=== PATIENT | female | born 1980 | race Caucasian/White ===

== ENCOUNTER 2016-05-29 15:21 | Emergency (ER) | payer OTHER, SELFPAY ==
[2016-05-29 16:26] LABS: MEAN CORPUSCULAR HEMOGLOBIN 30.9 pg (27.0-33.0); MEAN CORPUSCULAR HGB CONC 33.7 g/dl (32.0-36.5); MEAN CORPUSCULAR VOLUME 91.8 fl (80.0-96.0); WHITE BLOOD COUNT 12.7 K/mm3 (4.0-10.0)
[2016-05-29 16:31] LABS: AMPHETAMINES LEVEL URINE NEGATIVE (NEGATIVE); BENZODIAZEPINES URINE NEGATIVE (NEGATIVE); COCAINE METABOLITE URINE NEGATIVE (NEGATIVE); METHADONE URINE NEGATIVE (NEGATIVE); OPIATES URINE NEGATIVE (NEGATIVE)
[2016-05-29 16:32] LABS: CONTROL LINE INT CTR LINE PRESENT; TRICYCLIC ANTIDEPRESS URINE NEGATIVE (NEGATIVE)
[2016-05-29 16:35] LABS: CONTROL LINE HCG INT CTR LINE PRESENT
[2016-05-29 16:52] LABS: ALBUMIN 3.7 GM/DL (3.2-5.2); ALBUMIN/GLOBULIN RATIO 1.23 (1.00-1.93); ALKALINE PHOSPHATASE 86 U/L (45-117); ALT/SGPT 18 U/L (12-78); ANION GAP 7 MEQ/L (8-16); AST/SGOT 9 U/L (15-37); BILIRUBIN,DIRECT < 0.1 MG/DL (0.0-0.2); BILIRUBIN,TOTAL 0.3 MG/DL (0.2-1.0); BLOOD UREA NITROGEN 6 MG/DL (7-18); CALCIUM LEVEL 8.3 MG/DL (8.5-10.1); CARBON DIOXIDE LEVEL 28 MEQ/L (21-32); CHLORIDE LEVEL 109 MEQ/L (98-107); GLOMERULAR FILTRATION RATE > 60.0 (>60); GLUCOSE, FASTING 100 MG/DL (70-105); POTASSIUM SERUM 4.1 MEQ/L (3.5-5.1); SODIUM LEVEL 144 MEQ/L (136-145); TOTAL PROTEIN 6.7 GM/DL (6.4-8.2)
--- NOTE | 2016-05-29 20:46 | EDDOCDS ---
Physician Documentation [facility] Name: Marycruz Baker Age: 36 yrs Sex: Female : 1980 Arrival Date: 05/29/2016 Time: 15:[address] [facility] Private MD: Disposition: 05/29 20:37 Critical Care: Critical care not applicable. pc Disposition: 05/29/16 20:38 Discharged to Home/Self Care. Impression: Bipolar disorder. - Condition is Stable. - Discharge Instructions: Bipolar Disorder. - Medication Reconciliation, Local Pharmacy Hours form. - Follow up: Referral list, As provided by PFS; When: Call to arrange an appointment; Reason: To establish care. - Problem is chronic. - Symptoms are unchanged. HPI: 15:56 This 36 yrs old Female presents to ER via Police Car with complaints of Psych pc Problem. 15:56 The history is obtained from the patient, a public safety police. She was brought in on a pc legal picker packer order after her mother complained of her being manic, with a history of Bipolar and noncompliance. She was brought in by [employer], and has been calm and cooperative. She states she doesn't get along with her mother and they were arguing. She denies making any SI or HI threats and denies SI or HI. She does admit to noncompliance but has been for a long time. She is calm and does not appear manic. Her speech is not pressured and she is able to stay on point. The patient has experienced similar episodes in the past, multiple times. The patient has not recently seen a physician. Historical: - Allergies: no known allergies; - Home Meds: 1. none - PMHx: Asthma; Anxiety; Bipolar disorder; - PSHx: Appendectomy; - The history from nurses notes was reviewed: but there are no nursing notes, or only partial notes available at the time of my charting. - Social history: Smoking status: Patient uses tobacco products, heavy tobacco smoker. No barriers to communication noted, Speaks appropriately for age. - : The pt / caregiver states he / she is not on anticoagulants. Home medication list is obtained from the patient. - Hospitalizations: : No recent hospitalization is reported. - Exposure Risk Screening:: None identified. - Immunization history:: All immunizations up-to-date. - Family history: Not pertinent. - Social history:: the patient smokes cigarettes the patient drinks alcohol. 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 The psychiatric and neurological components pc are also addressed in the HPI. Exam: 15:56 General Appearance: alert, no acute distress. pc 15:56 ENT: ear, nose and throat normal, pharynx normal. 15:56 Eyes: pupils equal, round and reactive to light, extraocular motions intact. 15:56 Neck: The exam reveals no acute abnormalities. ROM is normal and painless. No nuchal rigidity is noted.. 15:56 Respiratory: breathing is even and unlabored, breath sounds are normal. 15:56 Cardiovascular: regular pulse rate, regular heart rhythm, normal heart sounds, equal and full pulses bilaterally. 15:56 Abdomen: soft, non-tender, no organomegaly, normal bowel sounds, no masses appreciated, no hernias palpated with/without gravity or Valsalva 15:56 Skin: skin color is normal, warm, dry. 15:56 Extremities: The extremities have a grossly normal appearance, are non-tender, without acute ROM abnormalities. 15:56 Neuro: alert, oriented to person, place and time, cranial nerves normal as tested, no motor deficits, no sensory deficits. 15:56 Psych: mood is normal, affect is appropriate. Vital Signs: 15:39 Weight 61.23 kg / 134.99 lbs (R); Height 5 ft. 4 in. (162.56 cm) (R); Pain 0/10; ml6 15:39 BP 133 / 87; Pulse 91; Resp 18; Temp 97.6(O); Pulse Ox 98% on R/A; Pain 0/10; ml6 20:41 BP 109 / 69; Pulse 58; Resp 17; Temp 97.8; Pulse Ox 98% ; Pain 0/10; slm 15:39 Body Mass Index 23.17 (61.23 kg, 162.56 cm) ml6 MDM: 15:32 Consult PFS/PSA/Supervisor Word Processing: Patient's case requires discussion with on-call pc Psychiatrist ordered. 15:32 PSA/PFS to call Nursing Electronics Worker, to enter patient data on [place] Safe [place] if patient pc involuntarily admitted or transferred for SI or HI ordered. 15:32 Confirm accurate psychiatric medication list and times of last dosage ordered. pc 15:32 Detain Pt Until Medically/PFS Cleared ordered. pc 15:33 Acetaminophen Level Ordered. EDMS 15:33 Basic Metabolic Profile Ordered. EDMS 15:33 Complete Blood Count Ordered. EDMS 15:33 Drug Eval Toxicology ED Only Ordered. EDMS 15:33 Ethyl Alcohol (ethanol) Ordered. EDMS 15:33 HCG,Serum Qualitative Ordered. EDMS 15:33 Liver Profile Ordered. EDMS 15:33 Salicylate Level Ordered. EDMS 15:33 Thyroid Stimulating Hormone Ordered. EDMS 15:45 REGULAR DIET PLASTIC PERSAUD+DIET ordered. EDMS 15:52 Financial registration complete. gjb 15:52 Undo -Financial registration. gjb 15:56 Differential diagnosis: bipolar disorder with noncompliance; situational disturbance. pc Plan: labs, PFS eval. 16:40 Complete Blood Count Reviewed. pc 16:40 Drug Eval Toxicology ED Only Reviewed. pc 16:40 HCG,Serum Qualitative Reviewed. pc 16:57 Acetaminophen Level Reviewed. pc 16:57 Basic Metabolic Profile Reviewed. pc 16:57 Liver Profile Reviewed. pc 16:57 Salicylate Level Reviewed. pc 16:57 Ethyl Alcohol (ethanol) Reviewed. pc 16:57 HCG,Serum Qualitative Reviewed. pc 16:57 Thyroid Stimulating Hormone Reviewed. pc 18:47 Financial registration complete. gjb 20:11 [facility] [place] Payment Agreement was scanned into [employer]. and attached to record. gjb 20:37 The patient has been medically cleared for psychiatric evaluation, admission and/or pc transfer. [place] Safe [place] reporting: Reporting to the [place] Safe [place] was not completed because the patient did not display any suicidal or homicidal ideation and was not considered a risk to self or others. Data reviewed: old medical records, vital signs, nurses notes, lab test results. Test interpretation: LAB - all labs as ordered have been reviewed, interpreted and considered in the overall management of the clinical presentation;. The patient has been re-examined and re-evaluated. The clinical presentation did not require any ED treatment or interventions. Physician consultation: Dr. Ortiz Wakefield and will see patient in ED. Disposition: The historical points, examination findings, and any diagnostic results supporting the provided diagnosis, were discussed with the patient or legal guardian. The need for outpatient follow up with the provider listed on their discharge instructions was discussed. They were encouraged to return to [facility], or the nearest ED, if symptoms worsen/persist, or for any other questions/concerns. Signatures: Dispatcher [employer] Van Peralta MD MD pc Lowe, Matthew, RN RN ml6 Zaira Molina LPN LPN slm Beck, Gabriela gjb The chart was reviewed and I authenticate all verbal orders and agree with the evaluation and treatment provided.Attachments: 20:11 [facility] Payment Agreement rubens MTDD
--- NOTE | 2016-05-29 20:46 | EDDOCDS ---
Nurse's Notes [facility] Name: Marycruz Baker Age: 36 yrs Sex: Female : 1980 Arrival Date: 05/29/2016 Time: 15:[address] MD: Diagnosis: Bipolar disorder Presentation: 05/29 15:22 Presenting complaint: Patient states: states that she has been here visiting her ml6 mother, states that she has been arguing with her mother, states that she has been having anger issues and that her mother was trying to get her to take some supplement to help, patient denies SI or HI. Mental Health Triage Level: Level 2: 94.1. Adult Sepsis Screening: The patient does not have new or worsening altered mentation. Patient's respiratory rate is less than 22. Systolic blood pressure is greater than 100. Patient has a qSOFA score of 0- Negative Sepsis Screen. Mental Health Triage Level: Level 2:. Suicide/Homicide risk assessment- the patient denies having any suicidal and/or homicidal ideations and does not present with any other emotional, behavioral or mental health complaints. Status: Patient is not a loan service officer or dependent. Transition of care: patient was not received from another setting of care. 15:22 Acuity: FLORY Level 3 ml6 15:22 Method Of Arrival: Police Car ml6 Triage Assessment: 15:41 General: Appears in no apparent distress, Behavior is appropriate for age, cooperative. ml6 Pain: Denies pain. HIV screening NA for this visit Offered previously. The patient is triaged at the bedside. See Assessment in Nurses Notes section of ED record. Neurological: Level of Consciousness is awake, alert, Oriented to person, place, time. Cardiovascular: Capillary refill < 3 seconds is brisk in bilateral fingers toes Heart tones S1 S2 Edema is absent. Pulses are all present. Respiratory: No deficits noted. GI: No deficits noted. Abdomen is flat, non- distended Bowel sounds present X 4 quads. 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 none - PMHx: Asthma; Anxiety; Bipolar disorder; - PSHx: Appendectomy; - The history from nurses notes was reviewed: but there are no nursing notes, or only partial notes available at the time of my charting. - Social history: Smoking status: Patient uses tobacco products, heavy tobacco smoker. No barriers to communication noted, Speaks appropriately for age. - : The pt / caregiver states he / she is not on anticoagulants. Home medication list is obtained from the patient. - Hospitalizations: : No recent hospitalization is reported. - Exposure Risk Screening:: None identified. - Immunization history:: All immunizations up-to-date. - Family history: Not pertinent. - Social history:: the patient smokes cigarettes the patient drinks alcohol. Screenin:04 Screening information is obtained from the patient. Fall risk: No risks identified. ml6 Assistance ADL's: requires no assistance with activities of daily living. Abuse/DV Screen: The patient / caregiver reports he/she is: not in a situation that causes fear, pain or injury. Nutritional screening: No deficits noted. Advance Directives: Currently, there is no health care proxy. home support is adequate. Assessment: 15:22 General: see triage assessment. ml6 16:30 General: Appears in no apparent distress, comfortable, Behavior is appropriate for age, ml6 cooperative. Pain: Denies pain. Neurological: No deficits noted. Level of Consciousness is awake, alert, Oriented to person, place, time, Quiller Runner are equal bilaterally. Cardiovascular: No deficits noted. Capillary refill < 3 seconds is brisk in bilateral fingers toes Heart tones S1 S2 present Edema is absent. Pulses are all present. Rhythm is regular. 17:30 General: Appears in no apparent distress, comfortable, Behavior is appropriate for age, ml6 cooperative. Pain: Denies pain. Neurological: No deficits noted. Level of Consciousness is awake, alert, Oriented to person, place, time. Cardiovascular: No deficits noted. Capillary refill < 3 seconds is brisk in bilateral fingers toes Heart tones S1 S2 present Edema is absent. Pulses are all present. Rhythm is regular. Respiratory: No deficits noted. Airway is patent Respiratory effort is even, unlabored, Respiratory pattern is regular, symmetrical, Breath sounds are clear bilaterally. GI: No deficits noted. 19:52 General: Appears in no apparent distress, comfortable, Behavior is cooperative. slm General: pt sitting on stretcher family in room security observing . Respiratory: Airway is patent Respiratory effort is even, unlabored. 20:41 Reassessment: Patient appears in no apparent distress at this time. General: Appears slm comfortable, Behavior is cooperative, pleasant. Respiratory: Airway is patent Respiratory effort is even, unlabored. Derm: Skin is pink, warm & dry. Mental Health Eval: 17:31 Mental health consult is initiated at 16:00. ac 17:35 Status: The patient is not a loan service officer or dependent. [facility]: The patient is not an established patient of [facility] Behavioral Health. Referral Information: Evaluation referral is generated by a police agency: [facility] officer Adonay on . The patient was referred for evaluation because Pt's mother contacted this check writer expressing concern that pt is manic, making suicidal threats. Mother states pt moved here from [place] a few days ago. Per mother, pt has been manic, getting very angry and acting in bizarre manner: is afraid of electronic objects, has turned heat off in the house several times.. Vital Signs: 15:39 Weight 61.23 kg (R); Height 5 ft. 4 in. (162.56 cm) (R); Pain 0/10; ml6 15:39 BP 133 / 87; Pulse 91; Resp 18; Temp 97.6(O); Pulse Ox 98% on R/A; Pain 0/10; ml6 20:41 BP 109 / 69; Pulse 58; Resp 17; Temp 97.8; Pulse Ox 98% ; Pain 0/10; slm 15:39 Body Mass Index 23.17 (61.23 kg, 162.56 cm) ml6 Vitals: 15:39 Log In time N/A- police car arrival. ml6 ED Course: 15:22 Patient visited by Janell Felipe. dm19 15:22 Patient moved to [facility] dm19 15:23 Patient moved to [facility] ml6 15:25 Margie Feng MD is Attending Physician. ml 15:26 Patient visited by Margie Feng MD. ml 15:32 Van Griffin MD is Attending Physician. pc 15:37 Triage Initiated ml6 15:50 Patient visited by Antoine Kaur. dpm 15:50 Pt greeted and oriented to ED. Patient advised of names of staff involved in care, dpm location of call armstrong, wait times and NPO status. Patient has correct armband on for positive identification. Placed in gown. Placed in psych safe attire. Bed in low position. Security observing. Property removed, inventory done, secured in belongings bag- placed in locked locker. Placed in locker 3. vijay [rn] observed pt while changing. Psych Safety Check: Location: Psych Room. Visual Assessment: Cooperative. 16:00 Patient visited by Antoine Kaur. dpm 16:35 Patient visited by Antoine Kaur. dpm 16:56 Patient visited by Antoine Kaur. dpm 17:11 Patient visited by Antoine Kaur. dpm 17:27 Patient visited by Antoine Kaur. dpm 17:42 Patient visited by Antoine Kaur. dpm 18:05 The patient / caregiver is instructed regarding the plan of care and ED course. ml6 18:05 No IV's were initiated during this patient's visit. No procedures done that require ml6 assistance. 18:16 Patient visited by Quinn Dominguez RN. ml6 18:16 Patient visited by Antoine Kaur. dpm 18:31 Patient moved to OBSERVATION pc 18:33 Patient visited by Antoine Kaur. dpm 18:45 Patient visited by Antoine Kaur. dpm 18:59 Zaira Molina LPN is Primary Nurse. slm 19:00 Patient visited by Antoine Kaur. dpm 19:21 Patient visited by Antoine Kaur. dpm 19:44 Patient visited by Guillermo Patterson. tr 19:53 Patient visited by Zaira Molina LPN. slm 20:00 Patient visited by Guillermo Patterson. tr 20:11 [facility] Payment Agreement was scanned into [employer] and attached to record. gjb 20:14 Patient visited by Guillermo Patterson. tr 20:37 Patient moved to [facility] pc 20:38 Referral list, As provided by PFS is Referral Physician. pc 20:38 Patient visited by Guillermo Patterson. tr 20:45 Patient visited by Guillermo Patterson. tr Order Results: Lab Order: Acetaminophen Level; SPEC'M 05/29/16 16:09 Test: ACETAMINOPHEN LEVEL; Value: < 2.0; Range: 10.0-30.0; Abnormal: Below low normal; Units: UG/ML; Status: F Lab Order: Basic Metabolic Profile; SPEC'M 05/29/16 16:09 Test: GLUCOSE, FASTING; Value: 100; Range: 70-105; Units: MG/DL; Status: F Test: BLOOD UREA NITROGEN; Value: 6; Range: 7-18; Abnormal: Below low normal; Units: MG/DL; Status: F Test: CREATININE FOR GFR; Value: 0.80; Range: 0.55-1.02; Units: MG/DL; Status: F Test: SODIUM LEVEL; Range: 136-145; Units: MEQ/L; Status: I Test: POTASSIUM SERUM; Range: 3.5-5.1; Units: MEQ/L; Status: I Test: CHLORIDE LEVEL; Range: 98-107; Units: MEQ/L; Status: I Test: CARBON DIOXIDE LEVEL; Range: 21-32; Units: MEQ/L; Status: I Test: ANION GAP; Range: 8-16; Units: MEQ/L; Status: I Test: CALCIUM LEVEL; Range: 8.5-10.1; Units: MG/DL; Status: I Test: GLOMERULAR FILTRATION RATE; Value: > 60.0; Range: >60; Status: F Test: SODIUM LEVEL; Value: 144; Range: 136-145; Units: MEQ/L; Status: F Test: POTASSIUM SERUM; Value: 4.1; Range: 3.5-5.1; Units: MEQ/L; Status: F Test: CHLORIDE LEVEL; Value: 109; Range: 98-107; Abnormal: Above high normal; Units: MEQ/L; Status: F Test: CARBON DIOXIDE LEVEL; Value: 28; Range: 21-32; Units: MEQ/L; Status: F Test: ANION GAP; Value: 7; Range: 8-16; Abnormal: Below low normal; Units: MEQ/L; Status: F Test: CALCIUM LEVEL; Value: 8.3; Range: 8.5-10.1; Abnormal: Below low normal; Units: MG/DL; Status: F Test Note: ; Units are mL/min/1.73 m2 Chronic Kidney Disease Staging per NKF: Stage I & II GFR >=60 Normal to Mildly Decreased Stage III GFR 30-59 Moderately Decreased Stage IV GFR 15-29 Severely Decreased Stage V GFR <15 Very Little GFR Left ESRD GFR <15 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 Lab Order: Complete Blood Count; SPEC'M 05/29/16 16:09 Test: WHITE BLOOD COUNT; Value: 12.7; Range: 4.0-10.0; Abnormal: Above high normal; Units: K/mm3; Status: F Test: RED BLOOD COUNT; Value: 4.72; Range: 4.00-5.40; Units: M/mm3; Status: F Test: HEMOGLOBIN; Value: 14.6; Range: 12.0-16.0; Units: g/dl; Status: F Test: HEMATOCRIT; Value: 43.4; Range: 36.0-47.0; Units: %; Status: F Test: MEAN CORPUSCULAR VOLUME; Value: 91.8; Range: 80.0-96.0; Units: fl; Status: F Test: MEAN CORPUSCULAR HEMOGLOBIN; Value: 30.9; Range: 27.0-33.0; Units: pg; Status: F Test: MEAN CORPUSCULAR HGB CONC; Value: 33.7; Range: 32.0-36.5; Units: g/dl; Status: F Test: RED CELL DISTRIBUTION WIDTH; Value: 13.0; Range: 11.5-14.5; Units: %; Status: F Test: PLATELET COUNT, AUTOMATED; Value: 225; Range: 150-450; Units: k/mm3; Status: F Lab Order: Drug Eval Toxicology ED Only; SPEC'M 05/29/16 16:06 Test: AMPHETAMINES LEVEL URINE; Value: NEGATIVE; Range: NEGATIVE; Status: F Test: BARBITURATES URINE; Value: NEGATIVE; Range: NEGATIVE; Status: F Test: BENZODIAZEPINES URINE; Value: NEGATIVE; Range: NEGATIVE; Status: F Test: CANNABINOIDS URINE; Value: NEGATIVE; Range: NEGATIVE; Status: F Test: COCAINE METABOLITE URINE; Value: NEGATIVE; Range: NEGATIVE; Status: F Test: METHADONE URINE; Value: NEGATIVE; Range: NEGATIVE; Status: F Test: OPIATES URINE; Value: NEGATIVE; Range: NEGATIVE; Status: F Test: TRICYCLIC ANTIDEPRESS URINE; Value: NEGATIVE; Range: NEGATIVE; Status: F Test Note: ; ALL PRESUMPTIVE POSITIVE FINDINGS ARE UNCONFIRMED NORMAL VALUES THRESHOLD IN NG/ML AMPHETAMINES 1000 METHAMPHETAMINES 1000 BARBITURATES 300 BENZODIAZEPINES 300 CANNABINOIDS (THC) 50 COCAINE METABOLITE 300 METHADONE 300 OPIATES 300 PHENCYCLIDINE 25 TRICYCLIC ANTIDEPRESSANTS 1000 RESULTS ARE FOR MEDICAL PURPOSES ONLY. ALL URINE SPECIMENS WILL BE SAVED FOR 3 DAYS. IF CONFIRMATION OF A PRESUMPTIVE POSTIVE SCREEN RESULT IS DESIRED, CALL CHEMISTRY ([phone]) AND REQUEST URINE TO BE SENT TO REFERENCE LAB. FOR A LIST OF CLOSELY RELATED COMPOUNDS PLEASE CALL THE LAB. Lab Order: Ethyl Alcohol (ethanol); SPEC' 05/29/16 16:09 Test: ETHYL ALCOHOL (ETHANOL); Value: < 0.003; Range: 0.000-0.010; Units: %; Status: F Lab Order: HCG,Serum Qualitative; SPEC' 05/29/16 16:09 Test: HCG, SERUM QUALITATIVE; Value: NEGATIVE; Range: NEGATIVE; Status: F Lab Order: Liver Profile; [facility] 05/29/16 16:09 Test: AST/SGOT; Value: 9; Range: 15-37; Abnormal: Below low normal; Units: U/L; Status: F Test: ALT/SGPT; Value: 18; Range: 12-78; Units: U/L; Status: F Test: ALKALINE PHOSPHATASE; Value: 86; Range: 45-117; Units: U/L; Status: F Test: BILIRUBIN,TOTAL; Value: 0.3; Range: 0.2-1.0; Units: MG/DL; Status: F Test: BILIRUBIN,DIRECT; Value: < 0.1; Range: 0.0-0.2; Units: MG/DL; Status: F Test: TOTAL PROTEIN; Value: 6.7; Range: 6.4-8.2; Units: GM/DL; Status: F Test: ALBUMIN; Value: 3.7; Range: 3.2-5.2; Units: GM/DL; Status: F Test: ALBUMIN/GLOBULIN RATIO; Value: 1.23; Range: 1.00-1.93; Status: F Lab Order: Salicylate Level; [facility] 05/29/16 16:09 Test: SALICYLATE LEVEL; Value: 3.1; Range: 5.0-30.0; Abnormal: Below low normal; Units: MG/DL; Status: F Lab Order: Thyroid Stimulating Hormone; [facility] 05/29/16 16:09 Test: THYROID STIMULATING HORMONE; Value: 1.040; Range: 0.358-3.740; Units: uIU/ML; Status: F Outcome: 20:38 Discharge ordered by Provider. pc 20:42 Discharge Assessment: Patient awake, alert and oriented x 3. No cognitive and/or slm functional deficits noted. Patient verbalized understanding of disposition instructions. patient administered narcotics - no. The following High Risk Discharge criteria are identified: Yes, pt seen by and ROSINA . Discharged to home ambulatory, with parent. Condition: stable. Discharge instructions given to patient, Instructed on discharge instructions, follow up and referral plans. Demonstrated understanding of instructions, Pt was receptive of discharge instructions/ teaching. No special radiology studies were completed. 20:45 Patient left the ED. slm Signatures: Van Griffin MD MD pc Lundborg-Gray, Maja, MD MD ml Carter, Andy, PSA PSA ac Rasmussen, Tim tr Lowe, Matthew, RN RN ml6 Antoine Kaur dpm, Stephanie, LPN LPN slm Beck, Gabriela gjb McLear, Diane dm19 NITIN
--- NOTE | 2016-06-01 11:42 | EDDOCDS ---
Physician Documentation [facility] Name: Marycruz Baker Age: 36 yrs Sex: Female : 1980 Arrival Date: 05/29/2016 Time: 15:21 Bed [facility] Private MD: Disposition: 05/29 20:37 Critical Care: Critical care not applicable. pc Disposition: 05/29/16 20:38 Discharged to Home/Self Care. Impression: Bipolar disorder. - Condition is Stable. - Discharge Instructions: Bipolar Disorder. - Medication Reconciliation, Local Pharmacy Hours form. - Follow up: Referral list, As provided by PFS; When: Call to arrange an appointment; Reason: To establish care. - Problem is chronic. - Symptoms are unchanged. HPI: 15:56 This 36 yrs old Female presents to ER via Police Car with complaints of Psych pc Problem. 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 She was brought in by [employer], and has been calm and cooperative. She states she doesn't get along with her mother and they were arguing. She denies making any SI or HI threats and denies SI or HI. She does admit to noncompliance but has been for a long time. She is calm and does not appear manic. Her speech is not pressured and she is able to stay on point. The patient has experienced similar episodes in the past, multiple times. The patient has not recently seen a physician. Historical: - Allergies: no known allergies; - Home Meds: 1. none - PMHx: Asthma; Anxiety; Bipolar disorder; - PSHx: Appendectomy; - The history from nurses notes was reviewed: but there are no nursing notes, or only partial notes available at the time of my charting. - Social history: Smoking status: Patient uses tobacco products, heavy tobacco smoker. No barriers to communication noted, Speaks appropriately for age. - : The pt / caregiver states he / she is not on anticoagulants. Home medication list is obtained from the patient. - Hospitalizations: : No recent hospitalization is reported. - Exposure Risk Screening:: None identified. - Immunization history:: All immunizations up-to-date. - Family history: Not pertinent. - Social history:: the patient smokes cigarettes the patient drinks alcohol. ORDER RUNNER: 15:39 LMP 04/19/2016 ml6 ROS: 15:56 All systems are negative except as listed. The psychiatric and neurological components pc are also addressed in the HPI. Exam: 15:56 General Appearance: alert, no acute distress. pc 15:56 ENT: ear, nose and throat normal, pharynx normal. 15:56 Eyes: pupils equal, round and reactive to light, extraocular motions intact. 15:56 Neck: The exam reveals no acute abnormalities. ROM is normal and painless. No nuchal rigidity is noted.. 15:56 Respiratory: breathing is even and unlabored, breath sounds are normal. 15:56 Cardiovascular: regular pulse rate, regular heart rhythm, normal heart sounds, equal and full pulses bilaterally. 15:56 Abdomen: soft, non-tender, no organomegaly, normal bowel sounds, no masses appreciated, no hernias palpated with/without gravity or Valsalva 15:56 Skin: skin color is normal, warm, dry. 15:56 Extremities: The extremities have a grossly normal appearance, are non-tender, without acute ROM abnormalities. 15:56 Neuro: alert, oriented to person, place and time, cranial nerves normal as tested, no motor deficits, no sensory deficits. 15:56 Psych: mood is normal, affect is appropriate. Vital Signs: 15:39 Weight 61.23 kg / 134.99 lbs (R); Height 5 ft. 4 in. (162.56 cm) (R); Pain 0/10; ml6 15:39 BP 133 / 87; Pulse 91; Resp 18; Temp 97.6(O); Pulse Ox 98% on R/A; Pain 0/10; ml6 20:41 BP 109 / 69; Pulse 58; Resp 17; Temp 97.8; Pulse Ox 98% ; Pain 0/10; slm 15:39 Body Mass Index 23.17 (61.23 kg, 162.56 cm) ml6 MDM: 15:32 Consult PFS/PSA/Port Warden: Patient's case requires discussion with on-call pc Psychiatrist ordered. 15:32 PSA/PFS to call Nursing Dry Clipper Tender, to enter patient data on [place] Safe Act if patient pc involuntarily admitted or transferred for SI or HI ordered. 15:32 Confirm accurate psychiatric medication list and times of last dosage ordered. pc 15:32 Detain Pt Until Medically/PFS Cleared ordered. pc 15:33 Acetaminophen Level Ordered. EDMS 15:33 Basic Metabolic Profile Ordered. EDMS 15:33 Complete Blood Count Ordered. EDMS 15:33 Drug Eval Toxicology ED Only Ordered. EDMS 15:33 Ethyl Alcohol (ethanol) Ordered. EDMS 15:33 HCG,Serum Qualitative Ordered. EDMS 15:33 Liver Profile Ordered. EDMS 15:33 Salicylate Level Ordered. EDMS 15:33 Thyroid Stimulating Hormone Ordered. EDMS 15:45 REGULAR DIET PLASTIC PERSAUD+DIET ordered. EDMS 15:52 Financial registration complete. gjb 15:52 Undo -Financial registration. gjb 15:56 Differential diagnosis: bipolar disorder with noncompliance; situational disturbance. pc Plan: labs, PFS eval. 16:40 Complete Blood Count Reviewed. pc 16:40 Drug Eval Toxicology ED Only Reviewed. pc 16:40 HCG,Serum Qualitative Reviewed. pc 16:57 Acetaminophen Level Reviewed. pc 16:57 Basic Metabolic Profile Reviewed. pc 16:57 Liver Profile Reviewed. pc 16:57 Salicylate Level Reviewed. pc 16:57 Ethyl Alcohol (ethanol) Reviewed. pc 16:57 HCG,Serum Qualitative Reviewed. pc 16:57 Thyroid Stimulating Hormone Reviewed. pc 18:47 Financial registration complete. gjb 20:11 [facility] Payment Agreement was scanned into [employer] and attached to record. gjb 20:37 The patient has been medically cleared for psychiatric evaluation, admission and/or pc transfer. [place] Safe Act reporting: Reporting to the [place] Safe [place] was not completed because the patient did not display any suicidal or homicidal ideation and was not considered a risk to self or others. Data reviewed: old medical records, vital signs, nurses notes, lab test results. Test interpretation: LAB - all labs as ordered have been reviewed, interpreted and considered in the overall management of the clinical presentation;. The patient has been re-examined and re-evaluated. The clinical presentation did not require any ED treatment or interventions. Physician consultation: Dr. Ortiz Wakefield and will see patient in ED. Disposition: The historical points, examination findings, and any diagnostic results supporting the provided diagnosis, were discussed with the patient or legal guardian. The need for outpatient follow up with the provider listed on their discharge instructions was discussed. They were encouraged to return to [facility], or the nearest ED, if symptoms worsen/persist, or for any other questions/concerns. Signatures: Dispatcher [employer] Van Peralta MD MD pc Lowe, Matthew, RN RN ml6 Zaira Molina LPN LPN slm Beck, Gabriela gjb The chart was reviewed and I authenticate all verbal orders and agree with the evaluation and treatment provided.Attachments: 20:11 [facility] Payment Agreement rubens Chart Complete MTDD
--- NOTE | 2016-06-01 11:42 | EDDOCDS ---
Physician Documentation [facility] Name: Marycruz Baker Age: 36 yrs Sex: Female : 1980 Arrival Date: 05/29/2016 Time: 15:21 Bed [facility] Private MD: Disposition: 05/29 20:37 Critical Care: Critical care not applicable. pc Disposition: 05/29/16 20:38 Discharged to Home/Self Care. Impression: Bipolar disorder. - Condition is Stable. - Discharge Instructions: Bipolar Disorder. - Medication Reconciliation, Local Pharmacy Hours form. - Follow up: Referral list, As provided by PFS; When: Call to arrange an appointment; Reason: To establish care. - Problem is chronic. - Symptoms are unchanged. HPI: 15:56 This 36 yrs old Female presents to ER via Police Car with complaints of Psych pc Problem. 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 She was brought in by [employer], and has been calm and cooperative. She states she doesn't get along with her mother and they were arguing. She denies making any SI or HI threats and denies SI or HI. She does admit to noncompliance but has been for a long time. She is calm and does not appear manic. Her speech is not pressured and she is able to stay on point. The patient has experienced similar episodes in the past, multiple times. The patient has not recently seen a physician. Historical: - Allergies: no known allergies; - Home Meds: 1. none - PMHx: Asthma; Anxiety; Bipolar disorder; - PSHx: Appendectomy; - The history from nurses notes was reviewed: but there are no nursing notes, or only partial notes available at the time of my charting. - Social history: Smoking status: Patient uses tobacco products, heavy tobacco smoker. No barriers to communication noted, Speaks appropriately for age. - : The pt / caregiver states he / she is not on anticoagulants. Home medication list is obtained from the patient. - Hospitalizations: : No recent hospitalization is reported. - Exposure Risk Screening:: None identified. - Immunization history:: All immunizations up-to-date. - Family history: Not pertinent. - Social history:: the patient smokes cigarettes the patient drinks alcohol. 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 The psychiatric and neurological components pc are also addressed in the HPI. Exam: 15:56 General Appearance: alert, no acute distress. pc 15:56 ENT: ear, nose and throat normal, pharynx normal. 15:56 Eyes: pupils equal, round and reactive to light, extraocular motions intact. 15:56 Neck: The exam reveals no acute abnormalities. ROM is normal and painless. No nuchal rigidity is noted.. 15:56 Respiratory: breathing is even and unlabored, breath sounds are normal. 15:56 Cardiovascular: regular pulse rate, regular heart rhythm, normal heart sounds, equal and full pulses bilaterally. 15:56 Abdomen: soft, non-tender, no organomegaly, normal bowel sounds, no masses appreciated, no hernias palpated with/without gravity or Valsalva 15:56 Skin: skin color is normal, warm, dry. 15:56 Extremities: The extremities have a grossly normal appearance, are non-tender, without acute ROM abnormalities. 15:56 Neuro: alert, oriented to person, place and time, cranial nerves normal as tested, no motor deficits, no sensory deficits. 15:56 Psych: mood is normal, affect is appropriate. Vital Signs: 15:39 Weight 61.23 kg / 134.99 lbs (R); Height 5 ft. 4 in. (162.56 cm) (R); Pain 0/10; ml6 15:39 BP 133 / 87; Pulse 91; Resp 18; Temp 97.6(O); Pulse Ox 98% on R/A; Pain 0/10; ml6 20:41 BP 109 / 69; Pulse 58; Resp 17; Temp 97.8; Pulse Ox 98% ; Pain 0/10; slm 15:39 Body Mass Index 23.17 (61.23 kg, 162.56 cm) ml6 MDM: 15:32 Consult PFS/PSA/Chip Mucker: Patient's case requires discussion with on-call pc Psychiatrist ordered. 15:32 PSA/PFS to call Nursing Biological Sciences Instructor, to enter patient data [place] Safe [place] if patient pc involuntarily admitted or transferred for SI or HI ordered. 15:32 Confirm accurate psychiatric medication list and times of last dosage ordered. pc 15:32 Detain Pt Until Medically/PFS Cleared ordered. pc 15:33 Acetaminophen Level Ordered. EDMS 15:33 Basic Metabolic Profile Ordered. EDMS 15:33 Complete Blood Count Ordered. EDMS 15:33 Drug Eval Toxicology ED Only Ordered. EDMS 15:33 Ethyl Alcohol (ethanol) Ordered. EDMS 15:33 HCG,Serum Qualitative Ordered. EDMS 15:33 Liver Profile Ordered. EDMS 15:33 Salicylate Level Ordered. EDMS 15:33 Thyroid Stimulating Hormone Ordered. EDMS 15:45 REGULAR DIET PLASTIC PERSAUD+DIET ordered. EDMS 15:52 Financial registration complete. gjb 15:52 Undo -Financial registration. gjb 15:56 Differential diagnosis: bipolar disorder with noncompliance; situational disturbance. pc Plan: labs, PFS eval. 16:40 Complete Blood Count Reviewed. pc 16:40 Drug Eval Toxicology ED Only Reviewed. pc 16:40 HCG,Serum Qualitative Reviewed. pc 16:57 Acetaminophen Level Reviewed. pc 16:57 Basic Metabolic Profile Reviewed. pc 16:57 Liver Profile Reviewed. pc 16:57 Salicylate Level Reviewed. pc 16:57 Ethyl Alcohol (ethanol) Reviewed. pc 16:57 HCG,Serum Qualitative Reviewed. pc 16:57 Thyroid Stimulating Hormone Reviewed. pc 18:47 Financial registration complete. gjb 20:11 [facility] Payment Agreement was scanned into [employer] and attached to record. gjb 20:37 The patient has been medically cleared for psychiatric evaluation, admission and/or pc transfer. [place] Safe Act reporting: Reporting to the [place] Safe Act was not completed because the patient did not display any suicidal or homicidal ideation and was not considered a risk to self or others. Data reviewed: old medical records, vital signs, nurses notes, lab test results. Test interpretation: LAB - all labs as ordered have been reviewed, interpreted and considered in the overall management of the clinical presentation;. The patient has been re-examined and re-evaluated. The clinical presentation did not require any ED treatment or interventions. Physician consultation: Dr. Ortiz Wakefield and will see patient in ED. Disposition: The historical points, examination findings, and any diagnostic results supporting the provided diagnosis, were discussed with the patient or legal guardian. The need for outpatient follow up with the provider listed on their discharge instructions was discussed. They were encouraged to return to [facility], or the nearest ED, if symptoms worsen/persist, or for any other questions/concerns. Signatures: Dispatcher [employer] Van Peralta MD MD pc Lowe, Matthew, RN RN ml6 Zaira Molina LPN LPN slm Beck, Gabriela gjb The chart was reviewed and I authenticate all verbal orders and agree with the evaluation and treatment provided.Attachments: 20:11 [facility] Payment Agreement rubens Chart Complete MTDD
--- NOTE | 2016-06-01 11:42 | EDDOCDS ---
Nurse's Notes [facility] Name: Marycruz Baker Age: 36 yrs Sex: Female : 1980 Arrival Date: 05/29/2016 Time: 15:[address] MD: Diagnosis: Bipolar disorder Presentation: 05/29 15:22 Presenting complaint: Patient states: states that she has been here visiting her ml6 mother, states that she has been arguing with her mother, states that she has been having anger issues and that her mother was trying to get her to take some supplement to help, patient denies SI or HI. Mental Health Triage Level: Level 2: 94.1. Adult Sepsis Screening: The patient does not have new or worsening altered mentation. Patient's respiratory rate is less than 22. Systolic blood pressure is greater than 100. Patient has a qSOFA score of 0- Negative Sepsis Screen. Mental Health Triage Level: Level 2:. Suicide/Homicide risk assessment- the patient denies having any suicidal and/or homicidal ideations and does not present with any other emotional, behavioral or mental health complaints. Status: Patient is not a freight service inspector or dependent. Transition of care: patient was not received from another setting of care. 15:22 Acuity: FLORY Level 3 ml6 15:22 Method Of Arrival: Police Car ml6 Triage Assessment: 15:41 General: Appears in no apparent distress, Behavior is appropriate for age, cooperative. ml6 Pain: Denies pain. HIV screening NA for this visit Offered previously. The patient is triaged at the bedside. See Assessment in Nurses Notes section of ED record. Neurological: Level of Consciousness is awake, alert, Oriented to person, place, time. Cardiovascular: Capillary refill < 3 seconds is brisk in bilateral fingers toes Heart tones S1 S2 Edema is absent. Pulses are all present. Respiratory: No deficits noted. GI: No deficits noted. Abdomen is flat, non- distended Bowel sounds present X 4 quads. BEEF GRADER: 15:39 LMP 04/19/2016 ml6 Historical: - Allergies: no known allergies; - Home Meds: 1. none - PMHx: Asthma; Anxiety; Bipolar disorder; - PSHx: Appendectomy; - The history from nurses notes was reviewed: but there are no nursing notes, or only partial notes available at the time of my charting. - Social history: Smoking status: Patient uses tobacco products, heavy tobacco smoker. No barriers to communication noted, Speaks appropriately for age. - : The pt / caregiver states he / she is not on anticoagulants. Home medication list is obtained from the patient. - Hospitalizations: : No recent hospitalization is reported. - Exposure Risk Screening:: None identified. - Immunization history:: All immunizations up-to-date. - Family history: Not pertinent. - Social history:: the patient smokes cigarettes the patient drinks alcohol. Screenin:04 Screening information is obtained from the patient. Fall risk: No risks identified. ml6 Assistance ADL's: requires no assistance with activities of daily living. Abuse/DV Screen: The patient / caregiver reports he/she is: not in a situation that causes fear, pain or injury. Nutritional screening: No deficits noted. Advance Directives: Currently, there is no health care proxy. home support is adequate. Assessment: 15:22 General: see triage assessment. ml6 16:30 General: Appears in no apparent distress, comfortable, Behavior is appropriate for age, ml6 cooperative. Pain: Denies pain. Neurological: No deficits noted. Level of Consciousness is awake, alert, Oriented to person, place, time, Retort Kiln Burner are equal bilaterally. Cardiovascular: No deficits noted. Capillary refill < 3 seconds is brisk in bilateral fingers toes Heart tones S1 S2 present Edema is absent. Pulses are all present. Rhythm is regular. 17:30 General: Appears in no apparent distress, comfortable, Behavior is appropriate for age, ml6 cooperative. Pain: Denies pain. Neurological: No deficits noted. Level of Consciousness is awake, alert, Oriented to person, place, time. Cardiovascular: No deficits noted. Capillary refill < 3 seconds is brisk in bilateral fingers toes Heart tones S1 S2 present Edema is absent. Pulses are all present. Rhythm is regular. Respiratory: No deficits noted. Airway is patent Respiratory effort is even, unlabored, Respiratory pattern is regular, symmetrical, Breath sounds are clear bilaterally. GI: No deficits noted. 19:52 General: Appears in no apparent distress, comfortable, Behavior is cooperative. slm General: pt sitting on stretcher family in room security observing . Respiratory: Airway is patent Respiratory effort is even, unlabored. 20:41 Reassessment: Patient appears in no apparent distress at this time. General: Appears slm comfortable, Behavior is cooperative, pleasant. Respiratory: Airway is patent Respiratory effort is even, unlabored. Derm: Skin is pink, warm & dry. Mental Health Eval: 17:31 Mental health consult is initiated at 16:00. ac 17:35 Status: The patient is not a freight service inspector or dependent. [facility]: The patient is not an established patient of [facility]. Referral Information: Evaluation referral is generated by a police agency: [facility] officer [place] on . The patient was referred for evaluation because Pt's mother contacted this insurance underwriter sales expressing concern that pt is manic, making suicidal threats. Mother states pt moved here from [place] a few days ago. Per mother, pt has been manic, getting very angry and acting in bizarre manner: is afraid of electronic objects, has turned heat off in the house several times.. 20:44 Subjective: The patients chief complaint is My mother and I were arguing and the police ac brought me here. I was on hydroxizine but it only makes me sleepy. Delusions are denied. Patient's mood is elevated, Hallucinations are denied. Mental Health history: no relevant mental health problems or treatments. Mental Health Admissions: None. Current Outpatient Mental Health Services: None. Current living environment is The patient currently lives with his / her mother, and sister. Patient presents to Emergency Department with the following symptoms within the past 2 weeks: hypomania. Vital Signs: 15:39 Weight 61.23 kg (R); Height 5 ft. 4 in. (162.56 cm) (R); Pain 0/10; ml6 15:39 BP 133 / 87; Pulse 91; Resp 18; Temp 97.6(O); Pulse Ox 98% on R/A; Pain 0/10; ml6 20:41 BP 109 / 69; Pulse 58; Resp 17; Temp 97.8; Pulse Ox 98% ; Pain 0/10; slm 15:39 Body Mass Index 23.17 (61.23 kg, 162.56 cm) ml6 Vitals: 15:39 Log In time N/A- police car arrival. ml6 ED Course: 15:22 Patient visited by Janell Felipe. dm19 15:22 Patient moved to [facility] dm19 15:23 Patient moved to [facility] ml6 15:25 Margie Feng MD is Attending Physician. ml 15:26 Patient visited by Margie Feng MD. ml 15:32 Van Griffin MD is Attending Physician. pc 15:37 Triage Initiated ml6 15:50 Patient visited by Antoine Kaur. dpm 15:50 Pt greeted and oriented to ED. Patient advised of names of staff involved in care, dpm location of call armstrong, wait times and NPO status. Patient has correct armband on for positive identification. Placed in gown. Placed in psych safe attire. Bed in low position. Security observing. Property removed, inventory done, secured in belongings bag- placed in locked locker. Placed in locker 3. vijay [rn] observed pt while changing. Psych Safety Check: Location: Psych Room. Visual Assessment: Cooperative. 16:00 Patient visited by Antoine Kaur. dpm 16:35 Patient visited by Antoine Kaur. dpm 16:56 Patient visited by Antoine Kaur. dpm 17:11 Patient visited by Antoine Kaur. dpm 17:27 Patient visited by Antoine Kaur. dpm 17:42 Patient visited by Antoine Kaur. dpm 18:05 The patient / caregiver is instructed regarding the plan of care and ED course. ml6 18:05 No IV's were initiated during this patient's visit. No procedures done that require ml6 assistance. 18:16 Patient visited by Quinn Dominguez RN. ml6 18:16 Patient visited by Antoine Kaur. dpm 18:31 Patient moved to OBSERVATION pc 18:33 Patient visited by Antoine Kaur. dpm 18:45 Patient visited by Antoine Kaur. dpm 18:59 Zaira Molina LPN is Primary Nurse. slm 19:00 Patient visited by Antoine Kaur. dpm 19:21 Patient visited by Antoine Kaur. dpm 19:44 Patient visited by Guillermo Patterson. tr 19:53 Patient visited by Zaira Molina LPN. slm 20:00 Patient visited by Guillermo Pattreson. tr 20:11 [facility] Payment Agreement was scanned into [employer] and attached to record. gjb 20:14 Patient visited by Tim. Leonardo tr 20:37 Patient moved to [facility] pc 20:38 Referral list, As provided by [facility] is Referral Physician. pc 20:38 Patient visited by Tim. Leonardo tr 20:45 Patient visited by Guillermo Patterson. tr Order Results: Lab Order: Acetaminophen Level; SPEC'M 05/29/16 16:09 Test: ACETAMINOPHEN LEVEL; Value: < 2.0; Range: 10.0-30.0; Abnormal: Below low normal; Units: UG/ML; Status: F Lab Order: Basic Metabolic Profile; SPEC'M 05/29/16 16:09 Test: GLUCOSE, FASTING; Value: 100; Range: 70-105; Units: MG/DL; Status: F Test: BLOOD UREA NITROGEN; Value: 6; Range: 7-18; Abnormal: Below low normal; Units: MG/DL; Status: F Test: CREATININE FOR GFR; Value: 0.80; Range: 0.55-1.02; Units: MG/DL; Status: F Test: SODIUM LEVEL; Range: 136-145; Units: MEQ/L; Status: I Test: POTASSIUM SERUM; Range: 3.5-5.1; Units: MEQ/L; Status: I Test: CHLORIDE LEVEL; Range: 98-107; Units: MEQ/L; Status: I Test: CARBON DIOXIDE LEVEL; Range: 21-32; Units: MEQ/L; Status: I Test: ANION GAP; Range: 8-16; Units: MEQ/L; Status: I Test: CALCIUM LEVEL; Range: 8.5-10.1; Units: MG/DL; Status: I Test: GLOMERULAR FILTRATION RATE; Value: > 60.0; Range: >60; Status: F Test: SODIUM LEVEL; Value: 144; Range: 136-145; Units: MEQ/L; Status: F Test: POTASSIUM SERUM; Value: 4.1; Range: 3.5-5.1; Units: MEQ/L; Status: F Test: CHLORIDE LEVEL; Value: 109; Range: 98-107; Abnormal: Above high normal; Units: MEQ/L; Status: F Test: CARBON DIOXIDE LEVEL; Value: 28; Range: 21-32; Units: MEQ/L; Status: F Test: ANION GAP; Value: 7; Range: 8-16; Abnormal: Below low normal; Units: MEQ/L; Status: F Test: CALCIUM LEVEL; Value: 8.3; Range: 8.5-10.1; Abnormal: Below low normal; Units: MG/DL; Status: F Test Note: ; Units are mL/min/1.73 m2 Chronic Kidney Disease Staging per NKF: Stage I & II GFR >=60 Normal to Mildly Decreased Stage III GFR 30-59 Moderately Decreased Stage IV GFR 15-29 Severely Decreased Stage V GFR <15 Very Little GFR Left ESRD GFR <15 on TECHNICAL SERVICES COORDINATOR Lab Order: Complete Blood Count; SPEC'M 05/29/16 16:09 Test: WHITE BLOOD COUNT; Value: 12.7; Range: 4.0-10.0; Abnormal: Above high normal; Units: K/mm3; Status: F Test: RED BLOOD COUNT; Value: 4.72; Range: 4.00-5.40; Units: M/mm3; Status: F Test: HEMOGLOBIN; Value: 14.6; Range: 12.0-16.0; Units: g/dl; Status: F Test: HEMATOCRIT; Value: 43.4; Range: 36.0-47.0; Units: %; Status: F Test: MEAN CORPUSCULAR VOLUME; Value: 91.8; Range: 80.0-96.0; Units: fl; Status: F Test: MEAN CORPUSCULAR HEMOGLOBIN; Value: 30.9; Range: 27.0-33.0; Units: pg; Status: F Test: MEAN CORPUSCULAR HGB CONC; Value: 33.7; Range: 32.0-36.5; Units: g/dl; Status: F Test: RED CELL DISTRIBUTION WIDTH; Value: 13.0; Range: 11.5-14.5; Units: %; Status: F Test: PLATELET COUNT, AUTOMATED; Value: 225; Range: 150-450; Units: k/mm3; Status: F Lab Order: Drug Eval Toxicology ED Only; SPEC05/29/16 16:06 Test: AMPHETAMINES LEVEL URINE; Value: NEGATIVE; Range: NEGATIVE; Status: F Test: BARBITURATES URINE; Value: NEGATIVE; Range: NEGATIVE; Status: F Test: BENZODIAZEPINES URINE; Value: NEGATIVE; Range: NEGATIVE; Status: F Test: CANNABINOIDS URINE; Value: NEGATIVE; Range: NEGATIVE; Status: F Test: COCAINE METABOLITE URINE; Value: NEGATIVE; Range: NEGATIVE; Status: F Test: METHADONE URINE; Value: NEGATIVE; Range: NEGATIVE; Status: F Test: OPIATES URINE; Value: NEGATIVE; Range: NEGATIVE; Status: F Test: TRICYCLIC ANTIDEPRESS URINE; Value: NEGATIVE; Range: NEGATIVE; Status: F Test Note: ; ALL PRESUMPTIVE POSITIVE FINDINGS ARE UNCONFIRMED NORMAL VALUES THRESHOLD IN NG/ML AMPHETAMINES 1000 METHAMPHETAMINES 1000 BARBITURATES 300 BENZODIAZEPINES 300 CANNABINOIDS (THC) 50 COCAINE METABOLITE 300 METHADONE 300 OPIATES 300 PHENCYCLIDINE 25 TRICYCLIC ANTIDEPRESSANTS 1000 RESULTS ARE FOR MEDICAL PURPOSES ONLY. ALL URINE SPECIMENS WILL BE SAVED FOR 3 DAYS. IF CONFIRMATION OF A PRESUMPTIVE POSTIVE SCREEN RESULT IS DESIRED, CALL CHEMISTRY ([phone]) AND REQUEST URINE TO BE SENT TO REFERENCE LAB. FOR A LIST OF CLOSELY RELATED COMPOUNDS PLEASE CALL THE LAB. Lab Order: Ethyl Alcohol (ethanol); SPEC'M 05/29/16 16:09 Test: ETHYL ALCOHOL (ETHANOL); Value: < 0.003; Range: 0.000-0.010; Units: %; Status: F Lab Order: HCG,Serum Qualitative; SPEC'M 05/29/16 16:09 Test: HCG, SERUM QUALITATIVE; Value: NEGATIVE; Range: NEGATIVE; Status: F Lab Order: Liver Profile; SPEC'M 05/29/16 16:09 Test: AST/SGOT; Value: 9; Range: 15-37; Abnormal: Below low normal; Units: U/L; Status: F Test: ALT/SGPT; Value: 18; Range: 12-78; Units: U/L; Status: F Test: ALKALINE PHOSPHATASE; Value: 86; Range: 45-117; Units: U/L; Status: F Test: BILIRUBIN,TOTAL; Value: 0.3; Range: 0.2-1.0; Units: MG/DL; Status: F Test: BILIRUBIN,DIRECT; Value: < 0.1; Range: 0.0-0.2; Units: MG/DL; Status: F Test: TOTAL PROTEIN; Value: 6.7; Range: 6.4-8.2; Units: GM/DL; Status: F Test: ALBUMIN; Value: 3.7; Range: 3.2-5.2; Units: GM/DL; Status: F Test: ALBUMIN/GLOBULIN RATIO; Value: 1.23; Range: 1.00-1.93; Status: F Lab Order: Salicylate Level; SPEC'M 05/29/16 16:09 Test: SALICYLATE LEVEL; Value: 3.1; Range: 5.0-30.0; Abnormal: Below low normal; Units: MG/DL; Status: F Lab Order: Thyroid Stimulating Hormone; SPEC'M 05/29/16 16:09 Test: THYROID STIMULATING HORMONE; Value: 1.040; Range: 0.358-3.740; Units: uIU/ML; Status: F Outcome: 20:38 Discharge ordered by Provider. pc 20:42 Discharge Assessment: Patient awake, alert and oriented x 3. No cognitive and/or slm functional deficits noted. Patient verbalized understanding of disposition instructions. patient administered narcotics - no. The following High Risk Discharge criteria are identified: Yes, pt seen by and ROSINA . Discharged to home ambulatory, with parent. Condition: stable. Discharge instructions given to patient, Instructed on discharge instructions, follow up and referral plans. Demonstrated understanding of instructions, Pt was receptive of discharge instructions/ teaching. No special radiology studies were completed. 20:45 Patient left the ED. slm Signatures: Van Griffin MD MD pc Lundborg-Gray, Maja, MD MD ml Carter, Andy, PSA PSA ac Rasmussen, Tim tr Lowe, Matthew, RN RN ml6 Antoine Kaur dpm, Stephanie,KALYAN FERMINN Ángela Turcios Diane dm19 Chart Complete MTDD
== END 2016-05-29 20:45 | disposition home or self-care (01) ==
LOC: M ED 15:21
DX: F31.9 Bipolar disorder, unspecified (principal); F41.9 Anxiety disorder, unspecified; J45.909 Unspecified asthma, uncomplicated; F17.210 Nicotine dependence, cigarettes, uncomplicated
CPT/HCPCS: 36415; 80048; 80076; 80306; 84443; 84703; 85027; 99284; G0480

== ENCOUNTER 2016-12-10 14:38 | Emergency (ER) | payer MEDICAID, SELFPAY ==
[~2016-12-10] VITALS: Ht 162.6 cm; Wt 63.0 kg
[2016-12-10 16:11] LABS: MEAN CORPUSCULAR HGB CONC 34.5 g/dl (32.0-36.5); MEAN CORPUSCULAR VOLUME 92.7 fl (80.0-96.0); RED CELL DISTRIBUTION WIDTH 13.4 % (11.5-14.5); WHITE BLOOD COUNT 11.3 K/mm3 (4.0-10.0)
[2016-12-10 16:28] LABS: CONTROL LINE HCG INT CTR LINE PRESENT
[2016-12-10 16:35] LABS: METHADONE URINE NEGATIVE (NEGATIVE)
[2016-12-10 16:43] LABS: ALBUMIN 3.6 GM/DL (3.2-5.2); ALBUMIN/GLOBULIN RATIO 1.33 (1.00-1.93); ALKALINE PHOSPHATASE 76 U/L (45-117); ALT/SGPT 14 U/L (12-78); ANION GAP 6 MEQ/L (8-16); AST/SGOT 13 U/L (15-37); BILIRUBIN,DIRECT 0.1 MG/DL (0.0-0.2); BILIRUBIN,TOTAL 0.5 MG/DL (0.2-1.0); BLOOD UREA NITROGEN 10 MG/DL (7-18); CALCIUM LEVEL 8.5 MG/DL (8.5-10.1); CARBON DIOXIDE LEVEL 23 MEQ/L (21-32); CHLORIDE LEVEL 110 MEQ/L (98-107); CREATININE FOR GFR 0.92 MG/DL (0.55-1.02); GLOMERULAR FILTRATION RATE > 60.0 (>60); GLUCOSE, FASTING 87 MG/DL (70-105); POTASSIUM SERUM 4.1 MEQ/L (3.5-5.1); SODIUM LEVEL 139 MEQ/L (136-145); TOTAL PROTEIN 6.3 GM/DL (6.4-8.2)
[2016-12-10] MEDS ORDERED: RISP0.5T21 PO (17:41)
[2016-12-10] MEDS ORDERED: ALBU17IN INH (17:41)
[2016-12-11] MEDS ORDERED: LORazepam 2 MG TAB PO STA (07:29)
[2016-12-11 08:36] VITALS: BP 113/61
== END 2016-12-11 08:41 ==
LOC: M ED 14:38
DX: F31.81 Bipolar II disorder (principal); J45.909 Unspecified asthma, uncomplicated
CPT/HCPCS: 36415; 80048; 80076; 80307; 82550; 84443; 84703; 85027; 99285; G0480

== ENCOUNTER 2016-12-20 14:50 | Inpatient (IN) | payer MEDICAID, SELFPAY ==
[~2016-12-20] VITALS: Ht 162.6 cm; Wt 65.3 kg
[~2016-12-20 14:50] MED LIST: ALBU17IN INH; RISP0.5T21 PO
[2016-12-20] MEDS ORDERED: HALOPERIDOL 5 MG TAB PO STA (15:11)
[2016-12-20] MEDS ORDERED: LORazepam 1 MG TAB PO STA (15:11)
[2016-12-20 15:28] LABS: MEAN CORPUSCULAR HGB CONC 33.5 g/dl (32.0-36.5); MEAN CORPUSCULAR VOLUME 92.6 fl (80.0-96.0); RED CELL DISTRIBUTION WIDTH 13.4 % (11.5-14.5)
[2016-12-20 15:43] LABS: CONTROL LINE HCG INT CTR LINE PRESENT
[2016-12-20 15:50] LABS: METHADONE URINE NEGATIVE (NEGATIVE)
[2016-12-20 16:00] LABS: ALBUMIN 3.6 GM/DL (3.2-5.2); ALKALINE PHOSPHATASE 71 U/L (45-117); ALT/SGPT 16 U/L (12-78); ANION GAP 9 MEQ/L (8-16); AST/SGOT 11 U/L (15-37); BILIRUBIN,DIRECT 0.2 MG/DL (0.0-0.2); BILIRUBIN,TOTAL 0.6 MG/DL (0.2-1.0); BLOOD UREA NITROGEN 8 MG/DL (7-18); CALCIUM LEVEL 8.5 MG/DL (8.5-10.1); CARBON DIOXIDE LEVEL 23 MEQ/L (21-32); CHLORIDE LEVEL 108 MEQ/L (98-107); CREATININE FOR GFR 0.81 MG/DL (0.55-1.02); GLOMERULAR FILTRATION RATE > 60.0 (>60); GLUCOSE, FASTING 121 MG/DL (70-105); POTASSIUM SERUM 3.7 MEQ/L (3.5-5.1); SODIUM LEVEL 140 MEQ/L (136-145); TOTAL PROTEIN 6.6 GM/DL (6.4-8.2)
[2016-12-20] MEDS ORDERED: LORazepam 1 MG TAB PO PRN (17:30)
[2016-12-20] MEDS ORDERED: MAALOX 30 ML SUSP *UDC PO PRN (17:30)
[2016-12-20] MEDS ORDERED: ACETAMINOPHEN TAB 650MG DOSE (2X325MG) PO PRN (17:30)
[2016-12-20] MEDS ORDERED: traZODone 50 MG TAB PO PRN (17:30)
[2016-12-20] MEDS ORDERED: HALOPERIDOL 5 MG TAB PO PRN (17:30)
[2016-12-20] MEDS ORDERED: MOM 30ML SUSPENSION UDC PO PRN (17:30)
[2016-12-20 17:58] VITALS: BP 113/67
[2016-12-20] MEDS ORDERED: ALBUTEROL 90 MCG/ACT 8GM HFA INHALER INH PRN (18:30)
[2016-12-20] MEDS: risperiDONE 2 MG TAB PO SCH (23:08)
[2016-12-21 06:00] VITALS: BP 92/52
[2016-12-21] MEDS: risperiDONE 2 MG TAB PO SCH ×2 (08:36→21:00)
--- NOTE | 2016-12-21 10:36 | HPEPDOC ---
Medical History and Physical Date of Admission Dec 20, 2016 at 17:17 History and Physical PCP: None ATTENDING: Dr. Carlos Casarez HPI: 36 yo F admitted to [facility] for schizoaffective disorder, being medically examined today. Patient complains of itchy and scratchy throat. Occasional cough. Usually uses Benadryl for allergy symptoms. Denies any fevers, chills, weakness, fatigue, AGUILAR, CP, SOB, cough, palpitations, abdominal pain, N/V/D or changes in bowel or bladder habits. PMHx: Asthma Allergies Reduced hearing History of recurrent ear infection Anxiety Depression Bipolar disorder PSHX: Tympanostomy tubes Appendectomy SOCHX: Resides in: [facility], visiting family in [facility]. Marital Status: Single Kids: None Employment: Unemployed Tobacco use: One half pack per day ETOH: Once per month 2 beers Illicit Drugs: History of opiates, cocaine. Patient states none recently. IV Drug Use: Denies Tattoos done unprofessionally: Denies FAMHX: Mother: Alive, history of thyroid disorder Father: Alive, well Siblings: 2 brothers, one sister Alive, well Children: None Unexpected deaths due to medical reasons: None. ROS: As noted in HPI, otherwise 11pt ROS of systems reviewed and remarkable only for LMP unknown. PE: GEN: 36yoF, appears stated age. Well-nourished, well developed. No acute distress. Alert and oriented x 3. Avoids eye contact, appears anxious. HEENT: Normocephalic, atraumatic. Pupils are equal, round, and reactive to light. Extraocular movements are intact. No nystagmus appreciated. Sclera are nonicteric. Conjunctiva without injection. Nose midline. Nasal turbinates without bogginess. EACs both patent BL. TMs both visualized and gonzalez with good cone of light, no bulging or erythema. No facial asymmetry. Moist mucous membranes. Dentition fair. Pharynx pink and moist, no cobblestoning. Neck supple , trachea midline. No lymphadenopathy or thyromegaly appreciated. CHEST: Regular rate and rhythm, +S1, +S2 LUNGS: Clear to auscultation bilaterally. No wheezes, rales, or rhonchi. Breathing appears symmetric and easy. Patient is speaking in full sentences. No accessory muscle use. ABD: Round, soft, non-tender, non-distended. +Bowel sounds throughout. No rebound or guarding. No costovertebral angle tenderness. EXT: Pulses 2+ bilaterally dorsalis pedis and radial. No lower extremity edema appreciated. SKIN: Crosswicks, dry, warm. Capillary refill <2sec. No rashes. NEURO: Alert and oriented x 3. Cranial nerves III-XII are intact. No focal deficits appreciated. EKG: pending. A&P: 36 yo F admitted to [facility] for schizoaffective disorder 1. Psych. Plan per Psychiatry. Obtain baseline EKG to assure the safety of psychiatric medications as they can prolong the QT interval. 2. Nicotine dependence. Patch available. 3. Asthma. Continue albuterol 2 puffs every 4 hours as needed. 4. Follow up. No Primary Care Provider. Will attempt to establish PCP on discharge. 5. Allergic rhinitis. Add Zyrtec 10 mg daily. 6. Staff member Meghana PEARSON present throughout exam. Vital Signs Vital Signs Date Time Temp Pulse Resp B/P (MAP) Pulse Ox O2 Delivery O2 Flow Rate FiO2 12/21/16 06:00 98.9 73 18 92/52 (65) Room Air 12/20/16 17:58 97 Laboratory Data Labs 24H Laboratory Tests 2 12/20/16 15:17: Urine Amphetamines Screen NEGATIVE, Urine Benzodiazepines Screen NEGATIVE, Urine Opiates Screen NEGATIVE, Urine Methadone Screen NEGATIVE, Urine Barbiturates Screen NEGATIVE, Urine Phencyclidine Screen NEGATIVE, Urine Cocaine Metabolite Screen NEGATIVE, Urine Cannabinoids Screen NEGATIVE 12/20/16 15:18: Anion Gap 9, Glomerular Filtration Rate > 60.0, Calcium Level 8.5, Aspartate Amino Transf (AST/SGOT) 11L, Alanine Aminotransferase (ALT/SGPT) 16, Alkaline Phosphatase 71, Total Bilirubin 0.6, Direct Bilirubin 0.2, Total Protein 6.6, Albumin 3.6, Albumin/Globulin Ratio 1.20, Thyroid Stimulating Hormone (TSH) 0.809, Human Chorionic Gonadotropin, Qual NEGATIVE, Salicylates Level 3.8L, Acetaminophen Level < 2.0L, Ethyl Alcohol Level < 0.003 CBC/BMP Laboratory Tests 12/20/16 15:18 Red Blood Count 4.49, Mean Corpuscular Volume 92.6, Mean Corpuscular Hemoglobin 31.0, Mean Corpuscular Hemoglobin Concent 33.5, Red Cell Distribution Width 13.4 Home Medications Scheduled PRN Albuterol Sulfate (Ventolin Hfa) 200 Puff/8 Gm Aers, 2 PUFF INH QID PRN for SHORTNESS OF BREATH Allergies Coded Allergies: No Known Allergies (Unverified , 12/10/16) Jaja Dooley Dec 21, 2016 10:36
[2016-12-21] MEDS: CETIRIZINE (ZyrTEC) 10 MG TAB PO SCH (10:54)
--- NOTE | 2016-12-21 16:57 | ECGEPIP ---
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 LA conduction disturbance? Incomplete RBBB, somewhat low voltages, slow precordial R-wave progression with persistent S waves in V5 and V6; body habitus versus pulmonary disease No prior tracing Electronically Signed On 12-21-2016 16:57:30 EDT by Abdi Iverson
[2016-12-21 18:00] VITALS: BP 98/53
--- NOTE | 2016-12-21 22:14 | MHHPE ---
DATE OF ADMISSION: 12/20/2016 CURRENT MEDICATIONS: - Risperdal, question of, 0.5 mg twice a day CHIEF COMPLAINT: The patient claims she is here for a breathing treatment. HISTORY OF PRESENT ILLNESS: This is a 36-year-old, single, white female living with her mother. The patient claims that she has asthma and shortness of breath due to smoking cigarettes and that she is here for a breathing treatment. The patient's mother called the police, concerned that the patient has been bizarre and paranoid. She was making threats to kill her mother. She had bizarre behavior such as throwing the cable box away, she is turning off the water and the power for the house, she is throwing food out of the house, she is yelling out on the street, running around. The patient was just here on 12/10/2016, with similar bizarre behavior at that time. For example, she had been talking to a cat who had over 1 year ago and was also trying to kill her mother. The patient was also here in May, also showing bizarre behavior. The patient apparently was paranoid about electronics and turning off heat in the middle of winter. The patient had just been hospitalized briefly at [facility], transferred from [facility] on 12/10/2016. Records from that hospitalization are not available. According to the emergency room records, the patient threw away her medications as soon as she was discharged and returned home and has not been taking them. The patient denies any mental health problems aside from anxiety. She reports her appetite is fine. She is trying to lose weight and claims to have lost ten pounds recently by dieting. She claims that her concentration is good, her level of energy is fine, she reports sleeping well at night. She denies recent difficulties with depression. She denies manic symptoms. She denies history of panic attacks, phobias, or obsessive compulsive disorder (OCD). PAST PSYCHIATRIC HISTORY: The patient was hospitalized briefly at [facility] in [place] as mentioned above, however the patient denies this. There is a reference to Risperdal in one of the old emergency room records. The patient is a poor historian. Family will need to be contacted to get a more appropriate history. She denies ever receiving any psychiatric treatment in [place] where she has lived her adult life. She does have a house in [place], but according to her father she has trashed it and it is no longer livable. MEDICAL HISTORY: Asthma. SURGICAL HISTORY: Appendectomy. ALLERGIES: The patient denies. LEGAL HISTORY: The patient denies, but states that she has been arrested for disorderly conduct before in the past. CHEMICAL DEPENDENCY: The patient claims she is a social drinker. SOCIAL HISTORY: The patient was born and raised in [place], but moved as a teenager to [place]. She is a poor historian so facts will need to be confirmed with family. She dropped out of high school, but did get her GED. She claims to have gone to 4 years of college but did not actually graduate. 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 She claims her mother lives here in [place] and her father lives in [place]. She has two brothers and one sister. She reports her relationship with them is good. FAMILY PSYCHIATRIC HISTORY: Patient denies. MENTAL STATUS EXAMINATION: The patient is alert and oriented. She is hard of hearing. Speech is quite pressured with obvious racing thoughts. She does appear manic. She denies depression. Speech is rambling, loose, and disjointed. She has poor insight and poor judgment, placing herself and others at risk. She denies hearing voices. The patient denies paranoia, but is apparently paranoid at home according to her mother. Impulse control is problematic. Grooming and hygiene is poor. Memory functions appear intact. ASSESSMENT: The patient appears to have schizoaffective disorder, bipolar type. Her condition probably predates her arriving in [place] back in May. Old history will need to obtained from family as the patient is not reliable. DIAGNOSIS: Schizoaffective disorder, bipolar type. PLAN: Confirm 9.39. Encourage medication compliance with Risperdal 2 mg twice a day. Involve in hospital milieu. Obtain old records from family. [facility]
[2016-12-22 07:04] VITALS: BP 96/55
[2016-12-22] MEDS: risperiDONE 2 MG TAB PO SCH ×2 (08:52→21:43)
[2016-12-22] MEDS: CETIRIZINE (ZyrTEC) 10 MG TAB PO SCH (08:52)
[2016-12-22 18:00] VITALS: BP 108/58
[2016-12-23 06:33] VITALS: BP 94/55
--- NOTE | 2016-12-23 08:22 | IPN ---
DATE: 12/22/2016 VITAL SIGNS: Temperature 98.7, pulse 59, respirations 16, blood pressure 96/51. CURRENT MEDICATIONS: - Risperdal 2 mg twice a day HISTORY OF PRESENT ILLNESS: The patient is taking her morning Risperdal but not the nighttime dose. She is not able to explain why. She does feel more relaxed with the Risperdal. She claims that it helps clear her thinking. The patient still denies any and all psychotic symptoms. She denies any history of psychiatric issues. The patient states that she wants to return home to [place] with her father. She claims appetite is good. She reports that she slept well last night, even with skipping the nighttime dose of Risperdal. She denies any other psychiatric issues. The patient is not attending groups, not participating in the milieu. She is isolating herself. She appears paranoid. MENTAL STATUS EXAMINATION: The patient is alert and oriented. She is a poor historian. She is guarded. She denies paranoia. No over delusional beliefs. Insight and judgment appear quite poor, however. She denies hearing voices. She denies feeling depressed. Speech is more appropriate today. She is not as restless or agitated as yesterday. Racing thoughts are less prominent. Memory functions appear intact. Grooming and hygiene are fair. DIAGNOSIS: Schizoaffective disorder, bipolar type. PLAN: Encourage medication compliance. Staff to contact family to obtain old records, if available.
[2016-12-23] MEDS: risperiDONE 2 MG TAB PO SCH ×2 (09:52→21:53)
[2016-12-23] MEDS: CETIRIZINE (ZyrTEC) 10 MG TAB PO SCH (09:52)
--- NOTE | 2016-12-23 10:01 | REP ---
CT Head without contrast HISTORY: Traumatic brain injury COMPARISON: None There is no intraparenchymal hemorrhage, acute infarct, mass or midline shift. The ventricular system is normal in appearance. There is no extra cerebral collection. There is no fracture. The visualized sinuses are clear. IMPRESSION: There is no intracranial lesion. Signed by Kyle Freeman MD 12/23/2016 09:52 A
[2016-12-23 18:00] VITALS: BP 97/54
[2016-12-24 06:43] VITALS: BP 112/65
--- NOTE | 2016-12-24 08:12 | IPN ---
DATE: 12/23/2016 VITAL SIGNS: Temperature 98.4, pulse 63, respirations 16, blood pressure 94/55. CURRENT MEDICATION: Risperdal 2 mg twice a day HISTORY OF PRESENT ILLNESS: The patient did take both her morning dose and her bedtime dose yesterday. She reports doing better with the medication. She feels more stable. The patient laughs and smiles during her interview. She does have a goal of getting a job when she is discharged. She has had no visitors as of yet, even though her mother lives in [place]. The patient claims that she will be agreeable to taking the medication upon discharge, as it do seem to help her function. Her appetite is good. She claims to be sleeping well at night. The patient is still isolating in the Milieu and is encouraged to be more active in the hospital Milieu therapy program. MENTAL STATUS EXAMINATION: The patient is alert and oriented. The patient remains a poor historian. She has poor insight. She remains quite guarded. She does appear paranoid. Racing thoughts have resolved however, Insight and judgment is fair. She denies hearing voices. No signs of depression. She does not appear manic today. Grooming and hygiene appear improved. DIAGNOSIS: 1. Schizoaffective disorder, bipolar type. PLAN: Continue psychotropics, encourage involvement in hospital Milieu.
[2016-12-24] MEDS: risperiDONE 2 MG TAB PO SCH (08:20)
[2016-12-24] MEDS: CETIRIZINE (ZyrTEC) 10 MG TAB PO SCH (08:21)
[2016-12-24 18:00] VITALS: BP 95/49
[2016-12-24] MEDS: NICOTINE 21MG/24HR 1 EA TRANSDERMAL TD SCH (18:18)
[2016-12-24] MEDS: risperiDONE 3 MG TAB PO SCH (21:03)
[2016-12-25 06:49] VITALS: BP 114/66
[2016-12-25] MEDS: CETIRIZINE (ZyrTEC) 10 MG TAB PO SCH (08:43)
[2016-12-25] MEDS: NICOTINE 21MG/24HR 1 EA TRANSDERMAL TD SCH (08:44)
--- NOTE | 2016-12-25 10:55 | MHIPN ---
DATE OF SERVICE: 12/24/2016 VITAL SIGNS: Temperature 97.7, pulse 69, respiration 18, blood pressure 112/65. CURRENT MEDICATION: Risperdal 2 mg twice a day. HISTORY OF PRESENT ILLNESS: The patient has been medication compliant with the Risperdal, but the morning dose does make her feel somewhat sleepy. The patient agreeable to switching her medication to a bedtime dosage. She again confirms that she is willing to take it upon discharge. She claims that she is thinking more clearly on it. She denies any depressive symptoms. She has goals of going back to work, paying off her bills, and getting a car. She denies feeling depressed or manic. She sleeps well at night with the Risperdal. She denies racing thoughts. Her mother does live locally in [place] and wants a family meeting, which she is agreeable to. associate financial planner will be in touch to arrange this. The patient did get an MRI, which showed no signs of intracranial lesion. MENTAL STATUS EXAMINATION: The patient is alert and oriented. She is cooperative. She is hard of hearing. Eye contact is reasonably good, though. Insight appears poor. Judgment appears fairly good with medication compliance issue. The patient remains guarded and somewhat paranoid. Racing thoughts much improved. The patient denies hearing voices. No current signs of mickey. Grooming and hygiene appear improved. The patient wearing street clothes. DIAGNOSIS: Schizoaffective disorder, bipolar type. PLAN: Discontinue morning dose of Risperdal. Bedtime dose increased to 3 mg at bedtime. The patient agreeable to family meeting.
[2016-12-25 18:00] VITALS: BP 102/57
[2016-12-25] MEDS: risperiDONE 3 MG TAB PO SCH (21:14)
[2016-12-26 06:57] VITALS: BP 106/60
[2016-12-26] MEDS: CETIRIZINE (ZyrTEC) 10 MG TAB PO SCH ×2 (09:00→13:13)
[2016-12-26] MEDS: NICOTINE 21MG/24HR 1 EA TRANSDERMAL TD SCH (09:05)
[2016-12-26 18:00] VITALS: BP 113/62
[2016-12-26] MEDS: risperiDONE 3 MG TAB PO SCH (21:13)
[2016-12-27 07:18] VITALS: BP 98/65
[2016-12-27] MEDS: CETIRIZINE (ZyrTEC) 10 MG TAB PO SCH (08:44)
[2016-12-27] MEDS: NICOTINE 21MG/24HR 1 EA TRANSDERMAL TD SCH (08:44)
--- NOTE | 2016-12-27 12:50 | MHIPN ---
DATE: 12/27/2016 VITAL SIGNS : Temperature 98.5, pulse 73, respirations 16, blood pressure 98/65. CURRENT MEDICATIONS: - Risperdal 3 mg at night HISTORY OF PRESENT ILLNESS: The patient likes to take the Risperdal at bedtime. She sleeps better on it. She states that her appetite has been good. She does not feel tired in the daytime. She reports decrease in anxiety symptoms. She reports playing games and socializing with her peers here in the unit. Her mother was visiting on Tuesday and I joined the conversation. The patient did get into a fight with her mother. We discussed release of information with family. She is willing to sign for her sister. She is now agreeable to sign for the Medicaid assistance to pay for hospital bill and medications upon discharge. She is showing better insight and judgment in this regard. MENTAL STATUS EXAMINATION: The patient is awake and oriented. She is more cooperative. She remains quite hard of hearing. Affect appears reasonably good. She does not appear depressed. Racing thoughts much improved. No current signs of mickey. She still appears paranoid and somewhat guarded. Grooming and hygiene appear improved. No behavioral outbursts on the unit. Insight is still quite limited about her psychiatric diagnosis. DIAGNOSIS: Schizoaffective disorder, bipolar type. PLAN: Continue Risperdal. Obtain release of information to speak with family regarding discharge planning.
[2016-12-27 18:38] VITALS: BP 92/52
[2016-12-27] MEDS: risperiDONE 3 MG TAB PO SCH (19:59)
[2016-12-28 07:06] VITALS: BP 96/61
[2016-12-28] MEDS: NICOTINE 21MG/24HR 1 EA TRANSDERMAL TD SCH (08:13)
[2016-12-28] MEDS: CETIRIZINE (ZyrTEC) 10 MG TAB PO SCH (08:14)
--- NOTE | 2016-12-28 11:56 | MHIPN ---
DATE OF SERVICE: 12/28/2016 VITAL SIGNS: Temperature 98.1, pulse 68, respiration 16, blood pressure 96/61. CURRENT MEDICATION: Risperdal 3 mg at bedtime. Trazodone 50 mg at bedtime as needed. HISTORY OF PRESENT ILLNESS: The patient is still compliant with the Risperdal at bedtime. We discussed switching her to the monthly injection. She will consider this option but is not willing to do so at this time. The senior materials planner has been in touch with her family, specifically her sister and mother. They are concerned about possible paranoia when she is discharged. The patient's paranoia has been mild here on the unit. She does still appear paranoid about her mother. She is going to sign a release of information with the sister but not the mother. She is going to have a family meeting with the sister but again not the mother. Staff report the patient has been starting to go to groups, even though she is quite hard of hearing. Appetite is good. Sleep is good. MENTAL STATUS EXAMINATION: The patient is alert and oriented. She does report some paranoia about her mother but no other delusional beliefs noted. Speech is somewhat rapid but no signs of mickey. Grooming and hygiene appear reasonably good. Insight and judgment are fair. DIAGNOSIS: Schizoaffective disorder, bipolar type. PLAN: Continue Risperdal. The staff to arrange a family meeting.
[2016-12-28 18:10] VITALS: BP 94/58
[2016-12-28] MEDS: risperiDONE 3 MG TAB PO SCH (21:17)
[2016-12-29 06:45] VITALS: BP 104/57
[2016-12-29] MEDS: CETIRIZINE (ZyrTEC) 10 MG TAB PO SCH (08:56)
[2016-12-29] MEDS: NICOTINE 21MG/24HR 1 EA TRANSDERMAL TD SCH (08:57)
--- NOTE | 2016-12-29 12:42 | MHIPN ---
DATE: 12/29/2016 VITAL SIGNS: Temperature 98.2, pulse 67, respirations 16, blood pressure 104/57. CURRENT MEDICATIONS: - Risperdal 3 mg nightly - trazodone 50 mg nightly as needed HISTORY OF PRESENT ILLNESS: The patient is medication compliance. She is sleeping well. Her appetite is good. No outburst noted. She denies mood swings. She is more social in the hospital milieu. The patient does have plans on staying with her mother here in [facility] upon discharge. However, with the Medicaid application staff checked with her, she tells them that she is moving out of state. This needs to be clarified. Her family wants her on Medicaid prior to discharge. We discussed having a family meeting prior to discharge. The patient feels comfortable with her sister, but not her mother. The patient still appears to have some residual paranoia. MENTAL STATUS EXAMINATION: The patient is alert and oriented. She is cooperative in most areas, but still reports some paranoia. She denies hearing voices. Speech remains rapid but no overt signs of mickey. Grooming and hygiene are good. Insight and judgment are fair. DIAGNOSIS: Schizoaffective disorder, bipolar type. PLAN: Continue Risperdal. Staff to work on family meeting. Encourage application for Medicaid.
[2016-12-29 18:04] VITALS: BP 94/56
[2016-12-29] MEDS ORDERED: risperiDONE 2 MG TAB PO SCH (21:00)
[2016-12-30 07:17] VITALS: BP 96/58
[2016-12-30] MEDS: CETIRIZINE (ZyrTEC) 10 MG TAB PO SCH (08:28)
[2016-12-30] MEDS: NICOTINE 21MG/24HR 1 EA TRANSDERMAL TD SCH (08:28)
[2016-12-30] MEDS ORDERED: RISP2TAB3 PO (14:30)
[2016-12-30] MEDS ORDERED: TRAZO50TA PO (14:30)
--- NOTE | 2016-12-30 17:59 | MHIPN ---
DATE: 12/30/2016 VITAL SIGNS: Temperature 99.2, pulse 77, respiratory rate 16, blood pressure 96/58. CURRENT MEDICATIONS: - Risperdal 4 mg at night - trazodone 50 mg at night as needed HISTORY OF PRESENT ILLNESS: The patient did finally sign off on her Medicaid application, which will take several days for processing. The patient has been cooperative with her psychotropics and takes her medication every night. She sleeps well. Appetite is good. She has been more social with the other peers on the unit. She is attending groups, even despite her hard of hearing status. MENTAL STATUS EXAMINATION: The patient is alert and oriented. Paranoia appears to be minimal. Racing thoughts appear to have resolved. She does not appear manic. She certainly is not depressed. She is not suicidal. She is not homicidal. Insight and judgment appear reasonably good. Grooming and hygiene are good. DIAGNOSIS: Schizoaffective disorder, bipolar type. PLAN: Continue Risperdal. Staff to work on discharge planning in the near future.
--- NOTE | 2016-12-31 06:04 | MHDS ---
DATE OF ADMISSION: 12/20/2016 DATE OF DISCHARGE: 12/30/2016 VITAL SIGNS: Temperature 99.2, pulse 77, respirations 16, blood pressure 96/58. LABORATORY DATA: CBC and differential within normal limits. Chemistry within normal limits except for chloride 108, high, fasting glucose 121. AST was low at 11. Toxicology screen was negative. DISCHARGE MEDICATIONS: - Risperdal 4 mg one at bedtime, number seven with three refills - trazodone 50 mg one at bedtime as needed for sleep, number seven with three fills DISCHARGE DIAGNOSIS: Schizoaffective disorder bipolar type. CHIEF COMPLAINT: The patient claims she is here in the hospital for a breathing treatment. HISTORY OF PRESENT ILLNESS: This is a 36-year-old single white female living with her mother and sister. The patient claims that she has asthma and shortness of breath due to her smoking cigarettes. She is here for an asthma treatment. The patient's mother called the police, concerned that the patient has been acting bizarre, with paranoid ideation. She was making threats to kill her mother. She was turning off all the power to the house, throwing away the cable box, turning off the water. She was throwing food out of the house. She was yelling out on the street and running around in the neighborhood, acting bizarrely. The patient was just here on 12/10/2016, with similar behavior. At that point, she was talking to her cat who had over one year ago. The patient was hospitalized at [facility] in [place] briefly but then released. The patient was apparently placed on Risperdal while at [facility], but she discarded the medication upon discharge and promptly decompensated. PROGRESS ON THE UNIT: The patient was initially oppositional to taking psychotropics, but after several days she did agree. She was started on Risperdal 2 mg twice a day, tolerated the medication well. She did have some sedation in the morning, so it eventually was switched to 3 mg at bedtime. The patient still had some paranoid ideation and irritability, so it was eventually increased to 3 mg at bedtime prior to discharge. The patient had significant racing thoughts at time of admission. This improved gradually. Paranoia improved as well. She showed no signs of depression or suicidal potential. She denied being a danger to others. Her mother was visiting over the weekend and was seen during visiting hours as I was information technology associate. A family member was held with the patient's sister. The patient was initially oppositional to signing the Medicaid forms. She appeared paranoid. Her paranoia gradually lifted and she was eventually willing to sign off on all the appropriate paperwork. Family was willing to pay for her first week of prescription upon discharge. She was willing to take psychotropics upon discharge and followup with the local mental health center, and appeared to reach maximal hospital benefit. The patient is hard of hearing which made attendance at groups difficult, but she did reasonably well. MENTAL STATUS EXAMINATION: At the time of discharge, mood and affect appeared quite bright. Speech was still rapid with some anxiety symptoms. She had minimized it, however. She is not depressed. No overt mickey, though she did have some racing thoughts. No signs of dangerousness. Insight appeared fair. Judgment appeared improved. She denied hearing voices. Paranoia had lifted significantly. No signs of thought disorder. No signs of impulsivity. ASSESSMENT: The patient has reached maximal hospital benefit. PLAN: Discharge to the care of her family with followup mental health treatment. Patient is strongly urged to comply with the Risperdal and trazodone combination.
[2017-01-20] MEDS ORDERED: NICOTINE 21MG/24HR 1 EA TRANSDERMAL TD SCH (09:00)
== END 2016-12-30 16:30 | disposition home or self-care (01) | DRG 750 ==
LOC: M ED 14:50 → M ED INP 17:17 → M PSY 17:53
PROVIDERS: ADMIT Psychiatry & Neurology Psychiatry; ATTEND Psychiatry & Neurology Psychiatry
DX: F25.0 Schizoaffective disorder, bipolar type (principal); F17.210 Nicotine dependence, cigarettes, uncomplicated; J45.909 Unspecified asthma, uncomplicated; Z79.899 Other long term (current) drug therapy; Z79.51 Long term (current) use of inhaled steroids